=== PATIENT | female | born 1965 | race Caucasian/White ===

== ENCOUNTER 2019-11-06 20:28 | Observation (INO) | payer BC ==
[~2019-11-06] VITALS: Ht 152.4 cm; Wt 77.3 kg
--- NOTE | ~2019-11-06 | HEMODYNAMI ---
PATIENT:ANUP HILL MEDICAL RECORD: [id number] : 61 LOCATION:[facility] D.2114 ADMISSION DATE: 11/06/19 Generatedon:11/07/201913:29 Patient name: ANUP HILL Patient #: [id number] : 1965 Date of study: 11/07/2019 Page: Of Hemodynamic Procedure Report Patient Data Patient Demographics Procedure consent was obtained First Name: ANUP Gender: Female Last Name: LIZ : 1965 Patient #: [id number] Age: 53 year(s) Race: Unknown SSN: [id number] Additional ID: [id number] Contact details Address: [address] [place] [address] State: [place] City: [facility] Zip code: [address] Past Medical History Allergies: No known allergies Admission Admission Data Admission Date: 11/06/2019 Admission Time: 22:07 Admit Source: Other Room #: D.2114 Height (in.): 59.84 BSA: 1.74 (m2) Height (cm.): 152 BMI: 33.33 (kg/m2) Weight (lbs.): 169.76 Weight (kg.): 77 Lab Results Lab Result Date: 11/07/2019 Lab Result Time: 0:00 Biochemistry Name Units Result Min Max BUN mg/dl 13 --(--*-)-- 7 18 Creatinine mg/dl 0.8 --(-*--)-- 0.6 1.3 CBC Name Units Result Min Max Hemoglobin g/dl 13.4 -*(----)-- 13.5 17.5 Procedure Procedure Types Cath Procedure Diagnostic Procedure C [facility] w/Coronaries Sedation Charges Moderate Sedation up to 15 minutes Procedure Description Procedure Date Procedure Date: 11/07/2019 Procedure Start Time: 13:13 Procedure End Time: 13:24 Procedure Staff Name Function Steven Perez MD Performing Physician Palma Hooker RT Monitor Roseann Stewart RN Nurse Gabrielle Reyes RT Scrub Procedure Data Cath Procedure Fluoroscopy Diagnostic fluoroscopy Total fluoroscopy Time: 1.2 time: 1.2 min min Diagnostic fluoroscopy Total fluoroscopy dose: 178 dose: 178 mGy mGy Contrast Material Contrast Material Type Amount (ml) Isovue 300 39 Entry Location Entry Primary Successful Side Size Upsize Upsize Entry Closure Succes sful Closure Location (Fr) 1 (Fr) 2 (Fr) Remarks Device Remarks Femoral Right 5 Fr Exoseal artery Estimated blood loss: 10 ml Diagnostic catheters Device Type Used For End Catheter Placement MULTIPACK JL 4.0 5Fr Procedure catheter MULTIPACK 3DRC 5Fr Procedure catheter MULTIPACK Pigtail 5 Fr Ventriculography catheter Procedure Complications No complications Procedure Medications Medication Administration Route Dosage Oxygen etCO2 Nasal cannula 2 l/min Lidocaine 2% added to field 20 Heparin Flush Bag added to field 2 bags (1000units/500ml NS) 0.9% NaCl I.V. 100 ml/hr Radial Cocktail added to field 1 syringe (Verapamil 2mg/Nitro 400mcg/Heparin 1500units) Versed I.V. 1 mg Fentanyl I.V. 50 mcg Versed I.V. 1 mg Fentanyl I.V. 50 mcg Hemodynamics Rest BSA: 1.74 (m2) HGB: 13.4 (g/dl) O2 Consumption: Estimated: 168.54 (ml/min) O2 Co nsumption indexed: Estimated:96.86 (ml/min/m) Heart Rate: 72 (bpm) Pressure Samples Time Site Value (mmHg) Purpose Heart Use Rate(bpm) 13:20 LV 130/6,10 Snapshot 62 Gradients Valve Time Site Site Mean SEP/DFP Peak To Heart Use 1 2 (mmHg) (sec/min) Peak Rate (mmHg) (bpm) Aortic 13:21 LV AO 73 Snapshots Pre Cath Intra NCS Post Cath Vital Signs Time Heart Resp SPO2 etCO2 NIBP (mmHg) Rhythm Pain Sedation Rate (ipm) (%) (mmHg) Status Level (bpm) 13:06:28 70 43 100 39.6 123/66(88) NSR 0 (11) 10(A) , No pain 13:10:42 72 15 98 38.9 118/65(83) NSR 0 (11) 10(A) , No pain 13:14:54 68 15 99 37.4 117/67(92) NSR 0 (11) 9(A) , No pain 13:19:06 73 13 99 38.1 126/68(108) NSR 0 (11) 9(A) , No pain 13:23:22 72 12 98 28.2 110/65(94) NSR 0 (11) 10(A) , No pain Medications Time Medication Route Dose Verified Delivered Reason Notes Effectiveness by by 13:05:54 Oxygen etCO2 2 l/min Steven Roseann used for Nasal St Christo Stewart RN procedure cannula 13:06:01 Lidocaine 2% added 20ml Steven Steven for local to vial [facility] anesthetic field MD ESTRADA 13:06:07 Heparin Flush added 2 bags Steven Steven used for Bag to [facility] procedure (1000units/500ml field MD ESTRADA NS) 13:06:16 0.9% NaCl I.V. 100 Steven Buffie Per ml/hr St Christo Stewart RN physician 13:06:29 Radial Cocktail added 1 Steven Steven for not (Verapamil to syringe [facility] vasodilation used 2mg/Nitro field MD ESTRADA 400mcg/Heparin 1500units) 13:07:07 Versed I.V. 1 mg Steven Whitfield for sedation St Christo Stewart RN, MD 13:07:12 Fentanyl I.V. 50 mcg Steven Whitfield for sedation St Christo Stewart RN, MD 13:17:32 Versed I.V. 1 mg Steven Gabrielie for sedation St Christo Stewart RN, MD 13:17:36 Fentanyl I.V. 50 mcg Steven Whitfield for sedation St Christo Stewart RN, MD Procedure Log Time Note 12:39:44 Informed consent obtained and on chart 12:48:43 Patient Height : 59.84 inches 12:48:48 Patient Weight : 169.76 lbs 12:49:28 Lab Result : Creatinine 0.8 mg/dl 12:49:28 Lab Result : BUN 13 mg/dl 12:49:28 Lab Result : Hemoglobin 13.4 g/dl 12:50:37 Admit Source: Other 12:50:43 ACC Patient presents with Stable Angina CCS Anginal Class 3--Marked limitation of physical activity, angina occurs with ordinary activity.. 12:50:48 Procedure Status Urgent Heart Cath (IP). 12:50:52 Rosaenn Stewart RN sent for patient. Start room use. 12:50:54 Time tracking: Regular hours (M-F 7:00 - 5:00) 12:50:59 Plan of Care:Hemodynamics will remain stable., Cardiac rhythm will remain stable., Comfort level will be maintained., Respiratory function will remain adequate., Patient/ family verbilizes understanding of procedure., Procedure tolerated without complication., Recovers from procedure without complications.. 12:51:08 Patient received from Med II to [facility] 2 Alert and oriented. Tansferred to table in Supine position. 12:51:25 H&P Date Dictated: 11/07/2019 Within 30 days and on chart.. 12:51:27 Pre-procedure instructions explained to patient. 12:51:31 Family in patients room. 12:51:33 Patient NPO since Midnight. 12:51:40 Patient allergic to No known allergies 12:52:04 Lab results completed and on chart. 12:52:32 2) 60-89 Mildly reduced kidney function, and other findings (as for stage 1) point to kidney disease. 12:53:24 Maximum allowable contrast dose (3.7 X eGFR X 0.75)219 ml. 13:05:20 Warm blankets applied, and jake hugger turned on for patient comfort. 13:05:21 Correct patient and procedure confirmed by team. 13:05:21 ECG and BP/O2 sat monitors applied to patient. 13:05:22 Baseline sample Acquired. 13:05:22 Vital chart was started 13:05:28 Rhythm: sinus rhythm 13:05:32 Full Disclosure recording started 13:05:42 Is the patient allergic to Iodine/contrast media? No. 13:05:43 Was the patient premedicated? Yes 13:05:45 Is patient on blood thinner?No 13:05:47 Patient diabetic? No. 13:05:51 Snore? No 13:05:53 Sleep apnea? No 13:05:54 Oxygen 2 l/min etCO2 Nasal cannula was administered by Roseann Stewart RN; used for procedure; Verbal order read back and verified. 13:05:59 Dentures? No ? 13:06:01 Lidocaine 2% 20ml vial added to field was administered by Steven Perez MD; for local anesthetic; Verbal order read back and verified. 13:06:07 Heparin Flush Bag (1000units/500ml NS) 2 bags added to field was administered by Steven Perez MD; used for procedure; Verbal order read back and verified. 13:06:08 Patient pain scale 0/10 ?. 13:06:15 IV patent on arrival in right forearm with 0.9% NaCl at [facility]. 13:06:16 0.9% NaCl 100 ml/hr I.V. was administered by Roseann Stewart RN; Per physician; Verbal order read back and verified. 13:06:23 Right Radial & Right Groin area was prepped with chlora-prep and draped in sterile fashion 13:06:25 Alarms reviewed by R. N. 13:06:25 Sharps counted by scrub and verified by R.N. 13:06:26 Physician paged 13:06:27 Physician arrived 13:06:27 --------ALL STOP TIME OUT------ 13:06:29 Radial Cocktail (Verapamil 2mg/Nitro 400mcg/Heparin 1500units) 1 syringe added to field was administered by Steven Perez MD; for vasodilation; not used Verbal order read back and verified. 13:06:29 Final Timeout: patient, procedure, and site verified with staff and physician. All members of the team are in agreement. 13:06:31 Right Radial & Right Groin site verified by team. 13:06:36 Fire Safety Assessment: A--An alcohol-based skin anteseptic being used preoperatively., C--Open oxygen or nitrous oxide is being used., D--An ESU, laser, or fiber-optic light is being used. 13:06:40 Physical assessment completed. ASA score P 3 - A patient with severe systemic disease as per Steven Perez MD. 13:06:46 Sedation plan: IV Moderate Sedation Medication:Versed, Fentanyl 13:06:51 Use device set Radial Dx or PCI 13:06:52 ACIST Syringe (99640) opened to sterile field. 13:06:52 Medline Cath Pack ([id number]) opened to sterile field. 13:06:52 Bag Decanter () opened to sterile field. 13:06:53 ACIST Hand Control (47452) opened to sterile field. 13:06:53 ACIST Manifold (84129) opened to sterile field. 13:06:54 Tegaderm 4 x 4 (1626W) opened to sterile field. 13:06:58 MBrace Wrist Support ([id number]) opened to sterile field. 13:07:07 Versed 1 mg I.V. was administered by Roseann Stewart RN; for sedation; Verbal order read back and verified. 13:07:07 EMERALD Guide Wire (447-511) opened to sterile field. 13:07:07 SHEATH 6FR RAIN (2405453) opened to sterile field. 13:07:12 Fentanyl 50 mcg I.V. was administered by Roseann Stewart RN; for sedation; Verbal order read back and verified. 13:13:29 Procedure started. 13:13:46 Local anesthetic to right radial artery with Lidocaine 2% by Steven Perez MD.INITIAL ACCESS ONLY 13:15:55 unable to use radial 'Road block' 13:16:54 SHEATH 5FR Lantry (QIB019) opened to sterile field. 13:17:00 Local anesthetic to right femoral artery with Lidocaine 2% by Steven Perez MD.ADDITIONAL ACCESS 13:17:09 A 5 Fr sheath was inserted into the Right Femoral artery 13:17:20 DIAGNOSTIC Multipack 5Fr catheter set (TC4817) opened to sterile field. 13:17:26 A MULTIPACK JL 4.0 5Fr catheter was advanced over the wire and used for Procedure. 13:17:32 Versed 1 mg I.V. was administered by Roseann Stewart RN; for sedation; Verbal order read back and verified. 13:17:36 Fentanyl 50 mcg I.V. was administered by Roseann Stewart RN; for sedation; Verbal order read back and verified. 13:18:54 LCA angiography performed. 13:19:00 Catheter removed. 13:19:06 A MULTIPACK 3DRC 5Fr catheter was advanced over the wire and used for Procedure. 13:19:54 RCA angiography performed. 13:19:55 Catheter removed. 13:20:05 A MULTIPACK Pigtail 5 Fr catheter was advanced over the wire and used for Ventriculography. 13:21:30 LV gram done using CHANCE 13:21:37 EF : 55 % 13:21:38 Catheter removed. 13:21:56 Sheath removed intact; hemostasis achieved with Exoseal to the Right Femoral artery. 13:22:00 Procedure ended.(Physican Out) 13:22:12 Fluoroscopy time 01.20 minutes. 13:22:17 Fluoroscopy dose: 178 mGy 13:22:17 Flurop Dose total: 178 13:22:28 Dose Area Product 46804 mGy/cm. 13:22:34 Contrast amount:Isovue 300 39ml. 13:22:36 Maximum allowable dose exceeded? No. 13:22:41 Insertion/operative site no bleeding no hematoma. 13:22:48 Post-procedure physical assessment completed. ASA score P 3 - A patient with severe systemic disease as per Steven Perez MD. 13:22:52 Post procedure rhythm: unchanged. 13:22:55 Estimated blood loss: 10 ml 13:22:58 Post procedure instruction explained to patient.Patient verbalizes understanding. 13:23:18 Procedure type changed to Cath procedure, Diagnostic procedure, LHC, [facility] w/Coronaries, Sedation Charges, Moderate Sedation up to 15 minutes 13:23:19 Procedure and supply charges have been captured, reviewed, submitted and are correct. 13:23:43 Procedure Complication : No complications 13:23:51 Vital chart was stopped 13:23:57 [facility] Findings: mild to moderate CAD (<70%) 13:24:00 Operative report dictated upon procedure completion. 13:24:00 See physician's report for complete and final results. 13:24:03 Report given to [facility]. 13:24:07 Patient transfered to [facility] with Stretcher. 13:24:09 Procedure ended. 13:24:09 Full Disclosure recording stopped 13:24:19 End room use (Document Last) 13:24:57 EXOSEAL 5Fr (EX500) opened to sterile field. Device Usage Item Name Manufacture Quantity Catalog Hospital Part Current Minima l Lot# / Number Charge Number Stock Stock Serial# Code ACIST Acist 1 16064 [id number] 070269 710402 20 Syringe Medical (81565) Systems Inc Medline Medline 1 [id number] 531061 26588 018153 5 Cath Pack ([id number]) Bag Microtek 1 747731 73808 003791 5 Decanter Medical Inc. () ACIST Hand Acist 1 26650 633583 249590 446955 5 Control Medical (72403) Systems Inc ACIST Acist 1 77438 262813 334933 372555 5 Manifold Medical (18909) Systems Inc Tegaderm 4 3M 1 1626W 346566 026034 914754 5 x 4 (1626W) MBrace Advanced 1 140-0250-00 843544 04928 561769 5 Wrist Vascular Support Dynamics ([id number]) EMERALD Cardinal 1 502-455 547314 674044 744935 5 Guide Wire Health (502455) SHEATH 6FR Cardinal 1 7356399 970128 4322563 883324 5 RAIN Health (2667420) SHEATH 5FR Terumo 1 [id number] 676020 792091 726636 5 Lantry (GMD324) DIAGNOSTIC Cardinal 1 SN3254 380592 43751 128157 30 Multipack Health 5Fr catheter set (IP5244) MULTIPACK Cardinal 1 826267 5 JL 4.0 5Fr Health catheter MULTIPACK Cardinal 1 027701 5 3DRC 5Fr Health catheter MULTIPACK Cardinal 1 100839 5 Pigtail 5 Health Fr catheter EXOSEAL 5Fr Cardinal 1 EX500 176118 135206 826727 10 (EX500) Health Signature Audit [place] Stage Time Signature Unsigned Intra-Procedure 11/07/2019 Palma Hooker 1:28:35 PM RT(R) Intra-Procedure 11/07/2019 Roseann Stewart RN 1:29:15 PM Intra-Procedure 11/07/2019 Steven Latham 1:29:41 PM Christo ESTRADA Signatures Performing Physician : Signature : Steven Perez MD Date : Time : Monitor : Palma Hooker Signature : RT Date : Time : Nurse : Roseann Stewart RN Signature : Date : Time : [facility] [address] [place] [address]
[2019-11-06 21:03] LABS: BASOPHILS 0.9 % (0-2); EOSINOPHILS 3.1 % (0-7); HEMATOCRIT 40.8 % (36.0-48.0); HEMOGLOBIN 13.9 g/dL (12-16); LYMPHOCYTES 41.5 % (15-50); MCH 28.7 pg (26.0-34.0); MCHC 34.1 g/dL (31.0-37.0); MCV 84.3 fL (80.0-100.0); MEAN PLATELET VOLUME 11.3 fL (7.4-10.4); MONOCYTES 7.1 % (2-11); NEUTROPHILS 47.4 % (40-80); PLATELET COUNT 240 10x3/uL (130-400); RBC 4.84 10x6/uL (4.00-5.40); RDW 13.5 % (11.5-14.5); WBC 7.5 10x3/uL (4.8-10.8)
[2019-11-06 21:16] LABS: CALC OSMOLALITY 279 mosm/kg (275-300); CALCIUM 9.3 mg/dL (8.5-10.1); CHLORIDE - SERUM 104 mmol/L (98-107); CREATININE - SERUM 0.7 mg/dL (0.6-1.3); GLUCOSE 105 mg/dL (74-106); POTASSIUM - SERUM 3.5 mmol/L (3.5-5.1); SODIUM 140 mmol/L (136-145); UREA NITROGEN 15 mg/dL (7-18); eGFR NON AFRICAN AMERICAN > 90 mL/min (90-120)
[2019-11-06 21:31] LABS: ALBUMIN 3.8 g/dL (3.4-5.0); ALKALINE PHOSPHATASE 115 U/L (46-116); ALT (SGPT) 43 U/L (10-68); AMYLASE - SERUM 56 U/L (25-115); BILIRUBIN - TOTAL 0.19 mg/dL (0.2-1.3); CKMB 0.4 U/L (0.0-3.6); CREATINE KINASE 53 UL (21-215); LIPASE 157 U/L (73-393); PROTEIN - SERUM 7.7 g/dL (6.4-8.2)
[2019-11-06 21:33] LABS: TROPONIN-I < 0.017 ng/mL (0.000-0.060)
[2019-11-06 21:54] LABS: INR 0.93 (0.85-1.17); PROTIME 12.4 SECONDS (11.6-15.0)
[2019-11-06 22:46] LABS: D-DIMER-QUANTITATIVE < 0.27 ug/mLFEU (0.20-0.54)
--- NOTE | 2019-11-06 23:23 | NUR ---
PATIENT ARRIVED FROM ER. PATIENT IS ALERT AND ORIENTED, RESTING COMFORTABLY IN BED. RESPIRATIONS ARE EVEN AND UNLABORED. TELEMETRY PLACED. PATIENT RUNNING NORMAL SINUS HR 86. NO S/S OF DISTRESS. NO C/O PAIN PAIN. DENIES NEEDS AT THIS TIME. CALL LIGHT WITHIN REACH. AT BEDSIDE.
[2019-11-06 23:45] VITALS: Ht 152.4 cm; Wt 77.3 kg
[2019-11-07 00:27] VITALS: BP 149/75
--- NOTE | 2019-11-07 03:48 | NUR ---
PATIENT RESTING COMFORTABLY IN BED. RESPIRATIONS ARE EVEN AND UNLABORED. NO S/S OF DISTRESS. NO C/O PAIN. CALL IGHT WITHIN REACH. WILL CPOC.
[2019-11-07 04:30] VITALS: BP 118/62; BP 157/94
[2019-11-07 05:31] LABS: EOSINOPHILS 3.8 % (0-7); HEMATOCRIT 40.5 % (36.0-48.0); HEMOGLOBIN 13.4 g/dL (12-16); LYMPHOCYTES 43.9 % (15-50); MCHC 33.1 g/dL (31.0-37.0); MCV 84.6 fL (80.0-100.0); MEAN PLATELET VOLUME 11.6 fL (7.4-10.4); MONOCYTES 7.8 % (2-11); NEUTROPHILS 43.5 % (40-80); PLATELET COUNT 220 10x3/uL (130-400); RBC 4.79 10x6/uL (4.00-5.40); RDW 13.7 % (11.5-14.5); WBC 5.8 10x3/uL (4.8-10.8)
[2019-11-07 06:19] LABS: ALBUMIN 3.4 g/dL (3.4-5.0); ALKALINE PHOSPHATASE 96 U/L (46-116); ALT (SGPT) 35 U/L (10-68); BILIRUBIN - TOTAL 0.27 mg/dL (0.2-1.3); CALC OSMOLALITY 278 mosm/kg (275-300); CARBON DIOXIDE 26.2 mmol/L (21.0-32.0); CHLORIDE - SERUM 106 mmol/L (98-107); CREATININE - SERUM 0.8 mg/dL (0.6-1.3); GLUCOSE 99 mg/dL (74-106); POTASSIUM - SERUM 3.7 mmol/L (3.5-5.1); SODIUM 140 mmol/L (136-145); TROPONIN-I < 0.017 ng/mL (0.000-0.060); UREA NITROGEN 13 mg/dL (7-18); eGFR NON AFRICAN AMERICAN 79 mL/min (90-120)
[2019-11-07 08:32] VITALS: BP 120/60
[2019-11-07 09:04] LABS: CHOL - HDL RATIO 4.3 ratio (2.3-4.1); LDL-HDL RATIO 2.8 ratio (1.5-3.5)
--- NOTE | 2019-11-07 10:39 | NUR ---
TELEMETRY SR. CONSENTS SIGNED FOR [facility]. WILL CONT. PLAN OF CARE.
[2019-11-07 11:51] VITALS: BP 135/68
--- NOTE | 2019-11-07 12:52 | NUR ---
PRE-OPS GIVEN. TO HALFTONE OPERATOR BY BED.
--- NOTE | 2019-11-07 13:48 | NUR ---
BACK FROM TOWER WATCHMAN. VS WNL. RIGHT GROIN STABLE WITHOUT BLEEDING OR HEMATOMA NOTED. WILL MONITOR.
--- NOTE | 2019-11-07 13:56 | CN ---
PATIENT NAME:ANUP HILL MEDICAL RECORD: [id number] : 61 LOCATION:[facility] D.2114 ADMIT DATE: 11/06/19 ACCOUNT: [id number] CONSULTING PHYSICIAN: SLADE CHAVIRA MD REFERRING PHYSICIAN: SHAILESH NORTH MD DATE OF CONSULTATION: 11/07/2019 HISTORY OF PRESENT ILLNESS: A 53-year-old lady with strong family history of coronary artery disease, admitted with acute coronary syndrome, chest tightness, pressure radiating to left arm, queasiness onset fairly rapidly, does have a strong family history of coronary artery disease. ECG shows nonspecific ST-T changes anteriorly. We are asked to see her concerning her cardiovascular status. PAST MEDICAL HISTORY: Includes history of elective breast reduction in August. No other major illnesses. ALLERGIES: None known. MEDICATIONS: None currently. SOCIAL HISTORY: Works time buyer. Easily takes care of all her ADLs, was exercising previously. REVIEW OF SYSTEMS: The patient reports easy bruising but reports no swollen glands. The patient reports no fever, no night sweats, no significant weight gain, no significant weight loss. No significant exercise tolerance. The patient reports no dry eyes, no irritation, no vision change. Patient reports no difficulty hearing and no ear pain. Patient reports no frequent nose bleeds or nose and sinus problems. Patient reports on arm pain on exertion. No shortness of breath while lying down. No history of heart murmur. Patient reports no cough, no wheezing or coughing up blood. Patient reports no abdominal pain, no vomiting. Normal appetite. No diarrhea and not vomiting blood. No nausea and no constipation. Patient reports no incontinence. No difficulty urinating. No hematuria. No increased frequency. Patient reports no muscle aches. No weakness, no arthralgias, no back pain. No swelling of the extremities. Patient reports no abnormal mole, no jaundice, no rashes. Reports no loss of consciousness. No weakness and no numbness. No seizures, dizziness, or headaches. The patient reports no depression, no sleep disturbance, feeling safe in a relationship and no alcohol abuse. Patient reports on fatigue. Reports no runny nose or sinus pressure. No itching, no hives, and no frequent sneezing. PHYSICAL EXAMINATION: GENERAL: Pleasant female, in no acute distress, appears stated age. HEENT: Normocephalic, atraumatic. NECK: No JVD or bruit. HEART: Regular. LUNGS: Reyes clear. ABDOMEN: Soft, nontender. EXTREMITIES: Pulses 2+. No edema. NEUROLOGIC: Intact. DIAGNOSTIC DATA: ECG shows changes as described above. CONSULT REPORT [id number] ANUP HILL IMPRESSION: Acute coronary syndrome. PLAN: For angiography, intervention based on above. TRANSINT:[id number] Voice Confirmation ID: [id number] DOCUMENT ID: [id number] SLADE CHAVIRA MD at 1356 CC: [id number] DICTATION DATE: 11/07/19 0844 SANITATION WORKER: 11/07/19 1152 ADM IN [facility] [address] [place] [address]
--- NOTE | 2019-11-07 15:44 | NUR ---
BED REST UP. GROIN STABLE.
[2019-11-07 16:10] VITALS: BP 102/62
--- NOTE | 2019-11-07 17:16 | NUR ---
IV AND TELEMETRY DCD. DC PLANS GIVEN. UNDERSTANDING VOICED. ESCORTED TO CAR BY W/C
--- NOTE | 2019-11-08 08:22 | MORECARE ---
CASE MANAGEMENT DISCHARGE SUMMARY PATIENT: ANUP HILL UNIT: [id number] ADM DATE: 11/06/19 AGE: 53 : 61 SEX: F ROOM/BED: D.2114 AUTHOR: GADIEL NIXON PHYSICIAN: REFERRING PHYSICIAN: SHAILESH NORTH MD DATE OF SERVICE: 11/08/19 Discharge Plan Patient Name: ANUP HILL Facility: [facility]:[place] : 1965 Planned Disposition: Home Anticipated Discharge Date: 11/07/19 Discharge Date: 11/07/2019 Expected LOS: 1 Initial Reviewer: [email or web address] Initial Review Date: 11/08/2019 Generated: 11/08/19 9:22 am Patient Name: ANUP HILL Page 12540 at 0822 All edits/amendments must be made on the electronic document DICTATION DATE: 11/08/19821 FARMER VEGETABLE: JAKE 11/08/19821 RPT#: [id number] DC DATE:11/07/19 STATUS: DIS IN [facility] [address] [place] [address] END OF REPORT
--- NOTE | 2019-11-08 11:31 | OP ---
PATIENT NAME: ANUP HILL MEDICAL RECORD: [id number] :61 LOCATION:D.M2 D.2114 ADMISSION DATE:11/06/19 SURGEON: SLADE CHAVIRA MD DATE OF OPERATION: 11/07/2019 PROCEDURE: Left heart catheterization, selective coronary angiography, and right femoral artery approach. CATHETERS: A 5-Malay sheath, 5/4 left and right Dmitry, 5/4 pig. The procedure was well tolerated. The patient was returned to the daniels. Sheath was removed. ExoSeal device placed. FINDINGS: Left ventriculography in 30-degree CHANCE view: Normal wall motion and normal systolic function. CORONARY ANATOMY: LEFT MAIN: Left main is free of disease. LAD: Free of disease in the diagonal system. CIRCUMFLEX: Free of disease in the marginal system. RIGHT CORONARY ARTERY: Dominant artery, gives rise to PDA, free of disease. IMPRESSION: Normal LV systolic function and normal coronary anatomy. TRANSINT:[id number] Voice Confirmation ID: [id number] DOCUMENT ID: [id number] SLADE CHAVIRA MD at 1131 CC: [id number] DICTATION DATE: 11/07/19 1326 RESIDENTIAL HOUSEKEEPER: 11/07/19 2200 DIS IN 11/07/19 [facility] [address] [place] [address]
== END 2019-11-07 17:17 | disposition home or self-care (01) ==
LOC: D.ER 20:28 → OBSVTIME 22:07 → D.M2 22:07
PROVIDERS: Family Medicine; Internal Medicine Interventional Cardiology; ADMIT Family Medicine; ATTEND Family Medicine
DX: I20.0 Unstable angina (principal); Z82.49 Family history of ischemic heart disease and other diseases of the circulatory system; I24.9 Acute ischemic heart disease, unspecified

== ENCOUNTER 2021-02-06 01:04 | Emergency (ER) | payer BC ==
[~2021-02-06] VITALS: Ht 152.4 cm; Wt 81.8 kg
[2021-02-06 01:09] VITALS: BP 120/94; Ht 152.4 cm; Wt 81.8 kg
[2021-02-06 01:32] LABS: BASOPHILS 0.3 % (0-2); EOSINOPHILS 1.5 % (0-7); HEMATOCRIT 43.3 % (36.0-48.0); HEMOGLOBIN 14.7 g/dL (12-16); IMMATURE GRANULOCYTES 0.2 % (0-5); LYMPHOCYTES 39.6 % (15-50); MCH 28.2 pg (26.0-34.0); MCHC 33.9 g/dL (31.0-37.0); MCV 83.1 fL (80.0-100.0); MEAN PLATELET VOLUME 10.9 fL (7.4-10.4); MONOCYTES 6.3 % (2-11); NEUTROPHIL ABS# 3.16 10x3/uL (1.56-6.13); NEUTROPHILS 52.1 % (40-80); PLATELET COUNT 190 10x3/uL (130-400); RBC 5.21 10x6/uL (4.00-5.40); RDW 13.6 % (11.5-14.5); WBC 6.1 10x3/uL (4.8-10.8)
[2021-02-06 01:41] LABS: CALC OSMOLALITY 280 mosm/kg (275-300); CALCIUM 9.1 mg/dL (8.5-10.1); CARBON DIOXIDE 30.7 mmol/L (21.0-32.0); CHLORIDE - SERUM 103 mmol/L (98-107); GLUCOSE 111 mg/dL (74-106); POTASSIUM - SERUM 3.7 mmol/L (3.5-5.1); SODIUM 140 mmol/L (136-145); UREA NITROGEN 14 mg/dL (7-18); eGFR NON AFRICAN AMERICAN 61 mL/min (90-120)
[2021-02-06 01:57] LABS: BILIRUBIN NEGATIVE (NEGATIVE); KETONE NEGATIVE (NEGATIVE); NITRITE NEGATIVE (NEGATIVE); UROBILINOGEN NORMAL mg/dL (< 2)
[2021-02-06 01:59] LABS: ALBUMIN 3.8 g/dL (3.4-5.0); ALKALINE PHOSPHATASE 135 U/L (30-120); ALT (SGPT) 201 U/L (10-68); AMYLASE - SERUM 43 U/L (25-115); BILIRUBIN - TOTAL 0.62 mg/dL (0.2-1.3); CREATINE KINASE 39 UL (21-215); LIPASE 149 U/L (73-393); MAGNESIUM - SERUM 2.1 mg/dL (1.8-2.4); PROTEIN - SERUM 8.1 g/dL (6.4-8.2)
[2021-02-06 02:00] LABS: BACTERIA MODERATE HPF (NONE SEEN); SQUAMOUS EPITHELIAL 0-5 HPF (0-4); WHITE CELLS - URINE 0-5 HPF (0-4)
[2021-02-06 02:03] LABS: TROPONIN-I < 0.017 ng/mL (0.000-0.060)
[2021-02-06] MEDS ORDERED: PROTONIX40 MG PO (06:03)
[2021-02-07 11:10] LABS: HEPATITIS C ANTIBODY <0.1 S/CO RAT (0.0-0.9)
== END 2021-02-06 06:53 | disposition home or self-care (01) ==
LOC: D.ER 01:04
PROVIDERS: Family Medicine
DX: R10.11 Right upper quadrant pain (principal); K21.9 Gastro-esophageal reflux disease without esophagitis; K75.9 Inflammatory liver disease, unspecified

== ENCOUNTER 2021-02-06 20:07 | Inpatient (IN) | payer BC ==
[~2021-02-06] VITALS: Ht 157.5 cm; Wt 88.5 kg
[~2021-02-06 20:07] MED LIST: PROTONIX40 MG PO
[2021-02-06 20:38] LABS: BASOPHILS 0.3 % (0-2); EOSINOPHILS 0.5 % (0-7); HEMATOCRIT 44.3 % (36.0-48.0); HEMOGLOBIN 15.1 g/dL (12-16); LYMPHOCYTE ABS# 1.28 10x3/uL (1.18-3.74); LYMPHOCYTES 20.6 % (15-50); MCHC 34.1 g/dL (31.0-37.0); MCV 82.2 fL (80.0-100.0); MEAN PLATELET VOLUME 11.3 fL (7.4-10.4); MONOCYTES 5.8 % (2-11); NEUTROPHIL ABS# 4.53 10x3/uL (1.56-6.13); NEUTROPHILS 72.8 % (40-80); PLATELET COUNT 209 10x3/uL (130-400); RBC 5.39 10x6/uL (4.00-5.40); RDW 13.6 % (11.5-14.5); WBC 6.2 10x3/uL (4.8-10.8)
[2021-02-06 20:55] LABS: ANION GAP 15.9 mmol/L (8-16); CALCIUM 9.2 mg/dL (8.5-10.1); CREATININE - SERUM 0.9 mg/dL (0.6-1.3); POTASSIUM - SERUM 3.6 mmol/L (3.5-5.1)
[2021-02-06 20:59] LABS: CARBON DIOXIDE 20.7 mmol/L (21.0-32.0)
[2021-02-06 21:07] LABS: BILIRUBIN - TOTAL 1.86 mg/dL (0.2-1.3); MAGNESIUM - SERUM 1.9 mg/dL (1.8-2.4); PROTEIN - SERUM 7.8 g/dL (6.4-8.2)
[2021-02-06 21:32] LABS: BILIRUBIN NEGATIVE (NEGATIVE); KETONE MODERATE mg/dL (NEGATIVE); NITRITE NEGATIVE (NEGATIVE); UROBILINOGEN NORMAL mg/dL (< 2)
[2021-02-06 22:01] VITALS: BP 152/65
--- NOTE | 2021-02-06 22:20 | NUR ---
ULTRA SOUND AT BEDSIDE
[2021-02-06 23:01] VITALS: BP 135/51
--- NOTE | 2021-02-07 00:08 | NUR ---
PT REPORT GIVEN ROBERTA JORGE WITH VERBAL ACKNOWLEGEMENT
[2021-02-07 01:56] VITALS: BP 154/71
[2021-02-07 02:16] VITALS: BMI 33.0
[2021-02-07 06:25] LABS: BASOPHILS 0.2 % (0-2); EOSINOPHILS 0.2 % (0-7); HEMATOCRIT 41.8 % (36.0-48.0); HEMOGLOBIN 13.9 g/dL (12-16); LYMPHOCYTE ABS# 0.89 10x3/uL (1.18-3.74); MCH 27.4 pg (26.0-34.0); MCHC 33.3 g/dL (31.0-37.0); MCV 82.4 fL (80.0-100.0); MEAN PLATELET VOLUME 11.8 fL (7.4-10.4); MONOCYTES 7.1 % (2-11); NEUTROPHIL ABS# 3.95 10x3/uL (1.56-6.13); NEUTROPHILS 75.5 % (40-80); PLATELET COUNT 180 10x3/uL (130-400); RBC 5.07 10x6/uL (4.00-5.40); RDW 13.7 % (11.5-14.5); WBC 5.2 10x3/uL (4.8-10.8)
[2021-02-07 07:06] LABS: APTT 26.8 SECONDS (22.8-39.4); INR 1.08 (0.85-1.17); PROTIME 12.9 SECONDS (11.6-15.0)
[2021-02-07 07:07] LABS: ALBUMIN 3.5 g/dL (3.4-5.0); ALKALINE PHOSPHATASE 204 U/L (30-120); ALT (SGPT) 502 U/L (10-68); CALC OSMOLALITY 281 mosm/kg (275-300); CARBON DIOXIDE 25.1 mmol/L (21.0-32.0); CHLORIDE - SERUM 107 mmol/L (98-107); CREATININE - SERUM 0.7 mg/dL (0.6-1.3); GLUCOSE 113 mg/dL (74-106); POTASSIUM - SERUM 3.8 mmol/L (3.5-5.1); SODIUM 141 mmol/L (136-145); UREA NITROGEN 12 mg/dL (7-18); eGFR NON AFRICAN AMERICAN > 90 mL/min (90-120)
[2021-02-07 07:15] LABS: CREATINE KINASE 30 UL (21-215); TROPONIN-I < 0.017 ng/mL (0.000-0.060)
[2021-02-07 07:36] LABS: AMYLASE - SERUM 699 U/L (25-115); LIPASE 5168 U/L (73-393)
--- NOTE | 2021-02-07 09:00 | NUR ---
ALERT AND ORIENTED X4. ABDOMEN TENDERNESS NOTED TO BUQ ANTERIOR WITH BOWEL SOUNDS HYPOACTIVE X4. ENCOURAGED AMBULATION AND USE OF INCENTIVE SPIROMETRY. TELEMETRY INTACT WITH DILAUDID AND ZOFRAN GIVEN PRN FOR PAIN AND NAUSEA. IVF INFUSING TO RIGHT WRIST AT PRESCRIBDRATE. REFUSES SCD'S WITH RISK VERSUS BENEFITS EXPLAINED. UP ADLIB TO BATHROOM. ENCOURAGED TO USE CALL LIGHT FOR ASSSIT.
[2021-02-07 09:07] VITALS: BP 116/58
[2021-02-07 11:53] VITALS: BP 132/63
[2021-02-07 17:20] VITALS: BP 114/50
--- NOTE | 2021-02-07 19:00 | NUR ---
BEDSIDE REPORT RECEIVED AND CARE OF PT ASSUMED. PT LYING ON RIGHT SIDE VISITING WITH SPOUSE. IV TO RIGHT WRIST PATENT WITH NS INFUSING AT 200 ML/HR. TELEMETRY IN PLACE AND READING 65 SR AT THIS ASSESSMENT. WILL MONITOR FOR NEEDS.
[2021-02-07 20:02] VITALS: BP 118/59
--- NOTE | 2021-02-07 21:10 | NUR ---
IV TO RIGHT WRIST LEAKING. REMOVED WITH CATHETER TIP INTACT. RE-SITED TO RIGHT HAND BY LUISITO LUIS USING 22 GUAGE CATHETER. IV FLUIDS RE-STARTED.
--- NOTE | 2021-02-07 21:23 | NUR ---
HS MEDICATIONS GIVEN. GAVE DILAUDID 1 MG IVP AND ZOFRAN 4 MG IVP PER PT REQUEST FOR PAIN AND NAUSEA, PER PRN ORDERS. WILL CONTINUE TO MONITOR CLOSELY.
[2021-02-08 00:41] VITALS: BP 111/41
[2021-02-08 04:52] VITALS: BP 137/52
[2021-02-08 06:39] LABS: ALBUMIN 3.1 g/dL (3.4-5.0); ALKALINE PHOSPHATASE 272 U/L (30-120); ALT (SGPT) 444 U/L (10-68); BILIRUBIN - TOTAL 1.34 mg/dL (0.2-1.3); CALCIUM 7.9 mg/dL (8.5-10.1); CARBON DIOXIDE 22.4 mmol/L (21.0-32.0); CHLORIDE - SERUM 103 mmol/L (98-107); CREATININE - SERUM 0.6 mg/dL (0.6-1.3); MAGNESIUM - SERUM 1.5 mg/dL (1.8-2.4); POTASSIUM - SERUM 3.3 mmol/L (3.5-5.1); PROTEIN - SERUM 6.3 g/dL (6.4-8.2); SODIUM 136 mmol/L (136-145); eGFR NON AFRICAN AMERICAN > 90 mL/min (90-120)
[2021-02-08 06:40] LABS: BASOPHILS 0.1 % (0-2); EOSINOPHILS 0.1 % (0-7); HEMATOCRIT 38.2 % (36.0-48.0); HEMOGLOBIN 12.8 g/dL (12-16); LYMPHOCYTE ABS# 1.32 10x3/uL (1.18-3.74); LYMPHOCYTES 15.9 % (15-50); MCH 28.8 pg (26.0-34.0); MCHC 33.5 g/dL (31.0-37.0); MEAN PLATELET VOLUME 11.5 fL (7.4-10.4); NEUTROPHIL ABS# 6.37 10x3/uL (1.56-6.13); NEUTROPHILS 76.9 % (40-80); RBC 4.45 10x6/uL (4.00-5.40); RDW 14.1 % (11.5-14.5)
[2021-02-08 06:41] LABS: MCV 85.8 fL (80.0-100.0); PLATELET COUNT 123 10x3/uL (130-400); WBC 8.3 10x3/uL (4.8-10.8)
[2021-02-08 06:45] LABS: AMYLASE - SERUM 246 U/L (25-115); CALC OSMOLALITY 267 mosm/kg (275-300); GLUCOSE 66 mg/dL (74-106); LIPASE 943 U/L (73-393); UREA NITROGEN 7 mg/dL (7-18)
[2021-02-08 09:30] VITALS: BP 135/57
[2021-02-08 13:05] VITALS: BP 141/67
--- NOTE | 2021-02-08 14:30 | NUR ---
ALERT AND ORIENTED WITH HEALY CATH CLAMPED FOR BLADDER TRAINING. IVF INFUSING AT PRESCRIBED RATE. FALL PRECATIONS IN PLACE WITH DAUGHTER PRESENT. ENCOURAGED TO USE CALL LIGHT FOR ASSIST
[2021-02-08 17:02] VITALS: BP 146/78
--- NOTE | 2021-02-08 19:00 | NUR ---
BEDSIDE REPORT RECEIVED AND CARE OF PT ASSUMED. PT LYING IN SUPINE POSITION VISITING WITH SPOUSE. IV TO RIGHT HAND PATENT WITH NS INFUSING AT 200 ML/HR. TELEMETRY IN PLACE PER ORDER AND READING 83 SR AT THIS ASSESSMENT. WILL MONITOR FOR NEEDS.
--- NOTE | 2021-02-08 19:25 | NUR ---
PAGED VERA TINEO APN PER PT REQUEST FOR MEDICATION FOR NASAL STUFFINESS. RECEIVED ORDER FOR FLONASE TO BE GIVEN BID.
[2021-02-08 20:00] VITALS: BP 139/64
--- NOTE | 2021-02-08 20:58 | NUR ---
HS MEDICATIONS GIVEN. WILL CONTINUE TO MONITOR FOR NEEDS.
--- NOTE | 2021-02-08 21:51 | NUR ---
GAVE DILAUDID 1 MG IVP AND ZOFRAN 4 MG IVP PER PT REQUEST FOR SHARP ABDOMINAL PAIN AT LEVEL 7/10. WILL MONITOR FOR EFFECTIVENESS.
[2021-02-09] VITALS: BP 137/68
[2021-02-09 04:00] VITALS: BP 149/67
[2021-02-09 06:45] LABS: BASOPHILS 0.3 % (0-2); EOSINOPHILS 0.1 % (0-7); HEMATOCRIT 38.4 % (36.0-48.0); HEMOGLOBIN 12.9 g/dL (12-16); IMMATURE GRANULOCYTES 0.6 % (0-5); LYMPHOCYTES 11.6 % (15-50); MCH 27.7 pg (26.0-34.0); MCHC 33.6 g/dL (31.0-37.0); MEAN PLATELET VOLUME 12.2 fL (7.4-10.4); MONOCYTES 6.5 % (2-11); NEUTROPHIL ABS# 5.57 10x3/uL (1.56-6.13); NEUTROPHILS 80.9 % (40-80); RBC 4.65 10x6/uL (4.00-5.40); RDW 13.7 % (11.5-14.5); WBC 6.9 10x3/uL (4.8-10.8)
[2021-02-09 06:47] LABS: MCV 82.6 fL (80.0-100.0); PLATELET COUNT 162 10x3/uL (130-400)
[2021-02-09 07:18] LABS: ALBUMIN 2.9 g/dL (3.4-5.0); ALKALINE PHOSPHATASE 250 U/L (30-120); BILIRUBIN - TOTAL 0.79 mg/dL (0.2-1.3); CALCIUM 7.8 mg/dL (8.5-10.1); CARBON DIOXIDE 23.5 mmol/L (21.0-32.0); CHLORIDE - SERUM 100 mmol/L (98-107); CREATININE - SERUM 0.7 mg/dL (0.6-1.3); MAGNESIUM - SERUM 1.6 mg/dL (1.8-2.4); POTASSIUM - SERUM 3.3 mmol/L (3.5-5.1); PROTEIN - SERUM 6.2 g/dL (6.4-8.2); SODIUM 134 mmol/L (136-145); UREA NITROGEN 6 mg/dL (7-18); eGFR NON AFRICAN AMERICAN > 90 mL/min (90-120)
[2021-02-09 07:20] LABS: ALT (SGPT) 291 U/L (10-68); AMYLASE - SERUM 53 U/L (25-115); CALC OSMOLALITY 263 mosm/kg (275-300); GLUCOSE 61 mg/dL (74-106); LIPASE 174 U/L (73-393)
[2021-02-09 07:49] VITALS: BP 121/51
--- NOTE | 2021-02-09 10:00 | NUR ---
PATIENT IN BED WITH IV INTACT. IS ENCOURAGED. NO COMPLAINTS AT THIS TIME. FAMILY AT BS. CALL LIGHT WITHIN REACH.
--- NOTE | 2021-02-09 10:24 | MORECARE ---
CASE MANAGEMENT DISCHARGE SUMMARY PATIENT: ANUP HILL UNIT: [id number] ADM DATE: 02/06/21 AGE: 55 : 61 SEX: F ROOM/BED: D.2218 AUTHOR: GADIEL NIXON PHYSICIAN: REFERRING PHYSICIAN: LUPILLO MÁRQUEZ MD DATE OF SERVICE: 02/09/21 Discharge Plan Patient Name: ANUP HILL Facility: [facility]:[place] : 1965 Planned Disposition: Anticipated Discharge Date: Discharge Date: Expected LOS: Initial Reviewer: [email or web address] Initial Review Date: 02/07/2021 Generated: 02/09/21 11:23 am Comments DCP- Discharge Planning Updated by [email or web address]: Dianne Matthew on 02/09/21 8:[address] attempted to see patient for dc planning, she was sleeping will try again at a later time Patient Name: ANUP HILL Page [id number] at 1024 All edits/amendments must be made on the electronic document DICTATION DATE: 02/09/21 1024 BAG MAKING MACHINE OPERATOR: JAKE 02/09/21 1024 RPT#: [id number] DC DATE: STATUS: ADM IN [facility] [address] [place] [address] END OF REPORT
--- NOTE | 2021-02-09 11:30 | NUR ---
PATIENT IN BED WITH EYES CLOSED RESTING QUIETLY. CALL LIGHT WITHIN REACH. FAMILY AT BEDSIDE.
[2021-02-09 12:04] VITALS: BP 148/61
[2021-02-09 13:56] VITALS: Ht 157.5 cm; Wt 88.5 kg
--- NOTE | 2021-02-09 14:03 | MORECARE ---
CASE MANAGEMENT DISCHARGE SUMMARY PATIENT: ANUP HILL UNIT: [id number] ADM DATE: 02/06/21 AGE: 55 : 61 SEX: F ROOM/BED: D.2218 AUTHOR: TIFFANIDOC PHYSICIAN: REFERRING PHYSICIAN: LUPILLO MÁRQUEZ MD DATE OF SERVICE: 02/09/21 Discharge Plan Patient Name: ANUP HILL Facility: [facility]:[place] : 1965 Planned Disposition: Home or Self Care Anticipated Discharge Date: Discharge Date: Expected LOS: Initial Reviewer: [email or web address] Initial Review Date: 02/07/2021 Generated: 02/09/21 3:02 pm Comments DCP- Discharge Planning Updated by [email or web address]: Dianne Matthew on 02/09/21 12:[address] Patient Name: ANUP HILL Admission Status: ER Accout number: [id number] Admission Date: 02-06-2021 : 1965 Admission Diagnosis: Attending: LUPILLO HERNANDEZ Current LOS: 3 Anticipated DC Date: Planned Disposition: Home or Self Care Primary Insurance: [employer] OUT OF STATE Discharge Planning Comments: CM met with patient to complete initial dc planning assessment. CM educated patient on the CM role and verbal consent given by patient to complete assessment. Patient lives at home with her spouse where she is independent with her care. At discharge patient plans to return home and feels this is a safe discharge. CM discussed availability of home health, rehab services, and medical equipment. 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 Patient denied known discharge needs at this time. CM will continue to follow and will assist as needed with dc plans/needs Power Chisel Operator: Dianne Matthew DCP- Discharge Planning Updated by [email or web address]: Dianne Matthew on 02/09/21 8:[address] attempted to see patient for dc planning, she was sleeping will try again at a later time DCPIA - Discharge Planning Initial Assessment Updated by [id number]: Dianne Matthew on 02/09/21 1:58 pm * Is the patient Alert and Oriented? Yes * How many steps to enter\exit or inside your home? 16 * PCP CAN * Pharmacy [facility] [address] * Preadmission Environment Home with Family * ADLs Independent * List name and contact numbers for known caregivers / representatives who currently or will assist patient after discharge: [place] ( SPOUSE) [phone] * Verbal permission to speak to the caregivers and representatives has been obtained from the patient. N/A * Community resources currently utilized None * Additional services required to return to the preadmission environment? No * Can the patient safely return to the preadmission environment? Yes * Has this patient been hospitalized within the prior 30 days at any hospital? No Last DP export: 02/09/21 8:24 a Patient Name: ANUP HILL Page [id number] at 1403 All edits/amendments must be made on the electronic document DICTATION DATE: 02/09/211402 MACHINE APPLICATOR CEMENTER: JAKE 02/09/211402 RPT#: [id number] DC DATE: STATUS: ADM IN [facility] [address] [place] [address] END OF REPORT
--- NOTE | 2021-02-09 15:46 | NUR ---
PATIENT IN BED WITH IV INTACT. NO COMPLAINTS AT THIS TIME. MIRALAX GIVEN. BSCDS OFF. PATIENT SAID SHE DOESNT WANT TO WEAR THEM. CALL LIGHT WITHIN REACH.
[2021-02-09 16:51] VITALS: BP 150/72
--- NOTE | 2021-02-09 19:00 | NUR ---
BEDSIDE REPORT RECEIVED AND CARE OF PT ASSUMED. PT LYING IN SUPINE POSITION WITH EYES CLOSED. IV TO RIGHT HAND PATENT WITH NS INFUSING AT 200 ML/HR. TELEMETRY IN PLACE AND READING SR AT THIS ASSESSMENT. WILL MONITOR FOR NEEDS.
--- NOTE | 2021-02-09 19:05 | NUR ---
PATIENT SIGNED CONSENTS FOR SURGERY TOMORROW. IV INTACT. NO COMPLAINTS OR SIGNS OF DISTRESS. CALL LIGHT WITHIN REACH.
--- NOTE | 2021-02-09 20:32 | NUR ---
HS MEDICATIONS GIVEN TO INCLUDE MAG OX 400 MG PO PER THE ELECTROLYTE PROTOCOL.
[2021-02-09 21:33] VITALS: BP 139/62
--- NOTE | 2021-02-09 22:43 | NUR ---
GAVE DILAUDID AND ZOFRAN PER PT REQUEST FOR PAIN AND NAUSEA. WILL MONITOR FOR EFFECTIVENESS.
[2021-02-10 00:39] VITALS: BP 126/59
--- NOTE | 2021-02-10 04:45 | NUR ---
PT HAD HIBACLENS SHOWER AND ALL LINENS AND GOWN CHANGED.
[2021-02-10 05:15] VITALS: BP 138/66
[2021-02-10 05:56] LABS: BASOPHILS 0.5 % (0-2); EOSINOPHILS 0.7 % (0-7); HEMATOCRIT 35.3 % (36.0-48.0); IMMATURE GRANULOCYTES 0.7 % (0-5); LYMPHOCYTE ABS# 0.89 10x3/uL (1.18-3.74); LYMPHOCYTES 20.7 % (15-50); MCH 27.5 pg (26.0-34.0); MCV 80.8 fL (80.0-100.0); MEAN PLATELET VOLUME 11.4 fL (7.4-10.4); MONOCYTES 9.8 % (2-11); NEUTROPHILS 67.6 % (40-80); PLATELET COUNT 157 10x3/uL (130-400); RBC 4.37 10x6/uL (4.00-5.40); RDW 13.5 % (11.5-14.5)
[2021-02-10 06:20] LABS: WBC 4.3 10x3/uL (4.8-10.8)
[2021-02-10 06:27] LABS: ALBUMIN 2.4 g/dL (3.4-5.0); ALKALINE PHOSPHATASE 181 U/L (30-120); BILIRUBIN - TOTAL 0.49 mg/dL (0.2-1.3); CALC OSMOLALITY 266 mosm/kg (275-300); CALCIUM 7.9 mg/dL (8.5-10.1); CARBON DIOXIDE 25.2 mmol/L (21.0-32.0); CHLORIDE - SERUM 103 mmol/L (98-107); CREATININE - SERUM 0.7 mg/dL (0.6-1.3); GLUCOSE 83 mg/dL (74-106); MAGNESIUM - SERUM 1.9 mg/dL (1.8-2.4); PROTEIN - SERUM 6.3 g/dL (6.4-8.2); SODIUM 135 mmol/L (136-145); UREA NITROGEN 7 mg/dL (7-18); eGFR NON AFRICAN AMERICAN > 90 mL/min (90-120)
[2021-02-10 06:35] LABS: ALT (SGPT) 170 U/L (10-68); AMYLASE - SERUM 23 U/L (25-115); LIPASE 104 U/L (73-393)
[2021-02-10 06:36] LABS: POTASSIUM - SERUM 2.7 mmol/L (3.5-5.1)
--- NOTE | 2021-02-10 06:45 | NUR ---
POTASSIUM LEVEL 2.7 THIS AM. GAVE 40 MEQ K DUR PER THE ELECTROLYTE PROTOCOL. WILL RECEIVED 20 MEQ PO IN 2 HOURS.
--- NOTE | 2021-02-10 07:20 | NUR ---
GAVE DILAUDID 1 MG IVP AND ZOFRAN 4 MG IVP PER PT REQUEST FOR PAIN AT LEVEL 6/10 AND NAUSEA. WILL MONITOR FOR EFFECTIVENESS.
[2021-02-10 07:43] VITALS: BP 133/64
--- NOTE | 2021-02-10 13:15 | NUR ---
PATIENT BACK TO ROOM FROM SURGERY. INCISIONS CLEAN AND DRY AND INTACT. VS STABLE. NO COMPLAINTS OR SIGNS OF DISTRESS. FAMILY AT BEDSIDE. BSCDS ON AND WORKING. WILL CONTINUE TO MONITOR. TOLERATING WATER AND ICE CHIPS WITH NO PROBLEMS. CALL LIGHT WITHIN REACH.
--- NOTE | 2021-02-10 13:28 | NUR ---
PATIENT WAKING UP. IS GIVEN TO PATIENT AND EXPLAINED TO USE IS TO HELP TAKE DEEP BREATHS TO GET OFF THE O2, DEEP BREATHE, AND PREVENT PNX. VERBALIZED UNDERSTANDING. VS STABLE. CALL LIGHT WITHIN REACH. BSCDS ON AND WORKING. AT BEDSIDE.
--- NOTE | 2021-02-10 14:00 | NUR ---
PATIENT TOLERATED SOME JELLO AND PEANUT BUTTER CRACKERS AT THIS TIME. NO N/V. IV INTACT. CALL LIGHT WITHIN REACH.
[2021-02-10 14:43] VITALS: BP 122/44
[2021-02-10] MEDS ORDERED: HYDROCODONE-AC1 EAC2 PO (15:30)
--- NOTE | 2021-02-10 15:30 | NUR ---
PATIENT UP TO BR. VOIDED WITH NO PROBLEMS. NO DIZZYNESS OR AND OTHER PROBLEMS WHILE SITTING UP OR AMBULATING. IV INTACT. NO COMPLAINTS. CALL LIGHT WITHIN REACH.
--- NOTE | 2021-02-10 17:00 | NUR ---
PATIENT ATE REGULAR DIET AND TOLERATED WITH NO NAUSEA OR VOMITTING. SATS ARE WNL WITHOUT O2. WANTS TO BE DC'D HOME. WAITING ON DC PAPERWORK. CALL LIGHT WITHIN REACH.
--- NOTE | 2021-02-10 18:00 | NUR ---
PATIENT RECIEVED DC INSTRUCTIONS. VERBALIZED UNDERSTANDING. NO QUESTIONS AT THIS TIME. IV REMOVED WITH CATH TIPS INTACT. FAMILY AT SIDE. TELE REMOVED AND TAKEN TO ICU. WAITING FOR PATIENT TO GET DRESSED AND THEN WILL ESCORT DOWN TO PRIVATE VEHICLE IN .
--- NOTE | 2021-02-11 11:28 | OP ---
PATIENT NAME: ANUP HILL MEDICAL RECORD: [id number] :[birth year] LOCATION:D.[facility] [id number] ADMISSION DATE:02/06/21 SURGEON: NICO HURTADO MD DATE OF OPERATION: 02/10/2021 PREOPERATIVE DIAGNOSES: 1. Pancreatitis. 2. Elevated liver function tests. 3. Gastroesophageal reflux disease. POSTOPERATIVE DIAGNOSES: 1. Pancreatitis. 2. Elevated liver function tests. 3. Gastroesophageal reflux disease. PROCEDURE: Laparoscopic cholecystectomy with intraoperative cholangiogram. SURGEON: Nico Hurtado MD DESCRIPTION OF PROCEDURE: The patient's abdomen was prepped and draped in sterile fashion. A cutdown was made on the superior aspect of the umbilicus. Electrocautery was used to dissect through the subcutaneous tissues and fascia, 0 Vicryls were placed in the fascia bilaterally and then I bluntly entered the peritoneal cavity. A 12-mm Artem port was inserted and the abdomen was insufflated. Under direct visualization, a 5-mm trocar was placed in the epigastrium and 2 more 5-mm trocars were placed in the right subcostal region. The gallbladder was grasped and elevated. It was long and distended with no sign of any stones or acute inflammatory changes. The cystic artery and cystic duct were dissected free. The cystic artery was clipped proximally and distally and ligated. The cystic duct was clipped proximally and a small opening was made in it. A Cook cholangiogram catheter was brought through the abdominal wall and placed into the cystic duct. We were able to shoot contrast through the common and hepatic ducts out through the ampulla into the duodenum. There were no signs of any filling defects and there were no signs of any dilatation. The Cook cholangiocatheter was then removed. The cystic duct was clipped twice distally and then ligated. The gallbladder was taken off the liver bed using electrocautery and placed into the right upper quadrant. Any bleeding from the liver bed was then treated with electrocautery. The ports and insufflation were then removed and the gallbladder was taken out through the umbilicus. The umbilical fascia was closed with interrupted 0 Vicryls times 3. The wounds were then irrigated out with normal saline and infused with 10 mL of 0.25% Marcaine with epinephrine. The skin incisions were all closed with subcutaneous 5-0 Monocryl and dressed appropriately. COMPLICATIONS: None. CONDITION: Stable. ANESTHESIA: General endotracheal and local. BLOOD LOSS: Minimal. TRANSINT:[id number] Voice Confirmation ID: [id number] DOCUMENT ID: [id number] OPERATIVE REPORT [id number] ANUP HILL CHRISTIAN MD at 1128 CC: [id number] DICTATION DATE: 02/10/21 1210 ELECTROMECHANICAL ASSEMBLER: 02/10/21 1614 DIS IN 02/10/21 [facility] [address] [place] [id number]
== END 2021-02-10 18:20 | disposition home or self-care (01) | DRG 419 ==
LOC: D.ER 20:07 → D.MS 23:37
PROVIDERS: Family Medicine; Surgery; ADMIT Family Medicine Adult Medicine; ATTEND Family Medicine Adult Medicine
PROC: BF031ZZ Plain Radiography of Gallbladder and Bile Ducts using Low Osmolar Contrast (ICD-10-PCS; 2021-02-10)
PROC: 0FT44ZZ Resection of Gallbladder, Percutaneous Endoscopic Approach (ICD-10-PCS; principal; 2021-02-10 11:00)
DX: K85.10 Biliary acute pancreatitis without necrosis or infection (principal); R74.01 Elevation of levels of liver transaminase levels; E80.6 Other disorders of bilirubin metabolism